=== PATIENT | female | born 1995 | race Caucasian/White ===

== ENCOUNTER 2019-12-29 02:26 | Emergency (ER) | payer OTHER ==
[2019-12-29] MEDS ORDERED: DIPHENHYDRAMINE HCL 50 MG/ML VIAL IV ONE (03:54)
[2019-12-29] MEDS ORDERED: FAMOTIDINE INJ/PF 20 MG/2 ML SDV IV ONE (03:55)
[2019-12-29] MEDS ORDERED: METHYLPREDNISOLONE INJ 125 MG/2 ML SDV IV ONE (03:55)
--- NOTE | 2019-12-29 04:06 | ER Document Report ---
HPI - HPI Time Seen by Provider: 12/29/19 03:40 Pain Level: 3 Context: Patient is a 24-year-old female that comes to the emergency department for chief complaint of a rash and pain to the right arm. She states that she started noticing over the right forearm some itching, some splotchy redness, and then she started having what felt like swelling along the forearm and up towards the elbow, she states this started to become uncomfortable. This started just prior to arrival. She denies any other areas of rash or symptoms, she denies difficulty swallowing or breathing, she denies any other symptoms. She denies history of the same. She takes no daily medications, denies with LMP 3 weeks ago, denies any obvious exposures. - REPRODUCTIVE Reproductive: DENIES: : - MUSCULOSKELETAL Musculoskeletal: REPORTS: Extremity pain Past Medical History - General Information source: Patient - Social History Smoking Status: Never Smoker Chew tobacco use (# tins/day): No Frequency of alcohol use: Occasional Drug Abuse: None Lives with: Family Family History: Reviewed & Not Pertinent Patient has suicidal ideation: No Patient has homicidal ideation: No Surgical Hx: Negative - Immunizations Immunizations up to date: Yes Hx Diphtheria, Pertussis, Tetanus Vaccination: Yes Vertical Provider Document - CONSTITUTIONAL General Appearance: WD/WN, No Apparent Distress - HEENT HEENT: Atraumatic, Normal ENT Exam, Normocephalic - NECK Neck: Normal Inspection - RESPIRATORY Respiratory: Breath Sounds Normal, No Respiratory Distress - CARDIOVASCULAR Cardiovascular: Regular Rate, Regular Rhythm - GI/ABDOMEN Gastrointestinal: Abdomen Soft, Abdomen Non-Tender. negative: Abdomen Tender - BACK Back: Normal Inspection - MUSCULOSKELETAL/EXTREMETIES Musculoskeletal/Extremeties: NICKI BUSTOS. negative: Tender - There is faint erythema over the extensor surface of the right forearm, there is questionable minimal edema of the forearm as well, there are no hives, there is no wound, there is no significant erythema, there is no tenderness or abnormal heat. Normal wrist, hand, distal neurovascular exam, normal elbow range of motion, normal shoulder exam. - NEURO Level of Consciousness: Awake, Alert, Appropriate Motor/Sensory: No Motor Deficit, No Sensory Deficit - DERM Integumentary: Warm, Dry Course - Re-evaluation Re-evalutation: Patient with faint appearing possible rash which is barely there, patient states it is improved. There is questionable minimal swelling of the upper extremity as well. There is no bite te, there is no evidence of cellulitis or infection otherwise, there is no neurovascular deficit, there is no significant pain. Patient was started on steroids and antihistamines, discussed options with patient at length. Patient states she is concerned she has a blood clot in her arm. She does not smoke, denies recent travel, does not have personal or family history of this, and does not report any conditions that would increase coagulation. I recommended because of the initial itching, rash that is faded, and overall symptoms that this is more likely autoimmune, she will be treated with prednisone, antihistamines, however she was provided with a prescription for her to have a venous Doppler ultrasound if symptoms persist in her upper extremity, in addition to this I discussed return precautions in detail including signs of developing allergic reaction or infection. Patient states satisfaction and agreement with plan. - Vital Signs Vital signs: Temp Pulse Resp BP Pulse Ox 97.6 F 92 14 150/97 H 100 12/29/19 02:32 12/29/19 02:32 12/29/19 02:32 12/29/19 02:32 12/29/19 02:32 Discharge - Discharge Clinical Impression: Pain and swelling of right forearm, Rash Condition: Stable Disposition: HOME, SELF-CARE Additional Instructions: Your evaluation does not indicate infection, I suspect that the itching, rash, and soft tissue swelling are from an allergic reaction to something. I recommend the cetirizine and Pepcid antihistamines daily for 1 week, I recommend the steroid taper. If slight soft tissue swelling and discomfort continue after 2 to 3 days please perform the Doppler ultrasound to make sure there is not a blood clot. Return for any concerning symptoms including severe worsening swelling or pain, developing or spreading redness, fever, difficulty swallowing or breathing, or any other concerning symptoms. Prescriptions: Cetirizine HCl [24Hour Allergy] 10 mg PO DAILY #30 tablet Prednisone [Deltasone 10 mg Tablet] 10 mg PO ASDIR PRN #21 tablet PRN Reason: Famotidine [Pepcid 20 mg Tablet] 20 mg PO BID #14 tablet Forms: Follow-Up Outpatient Testing
[2019-12-29 05:29] VITALS: BP 134/84
== END 2019-12-29 05:29 | disposition home or self-care (01) ==
LOC: ER 02:26
DX: R21 Rash and other nonspecific skin eruption (principal); M79.601 Pain in right arm; R22.31 Localized swelling, mass and lump, right upper limb
CPT/HCPCS: 99283; 96374; 96375; J1200; J2930; S0028